=== PATIENT | female | born 1955 | race Caucasian/White ===

== ENCOUNTER 2017-10-28 11:08 | Emergency (ER) | payer BC ==
[2017-10-28 15:10] VITALS: BP 139/84
--- NOTE | 2017-10-28 15:13 | UC ---
FLU HPI - HPI Summary HPI Summary: 62 y/o female presents to the urgent care c/o sore throat, productive cough, body aches, fever, HARRIS, sinus pressure and nasal congestion with yellowish nasal discharge for the past 5 days. Pt didn't take the flu vaccines last year. Pt has been taking Mucinex, Naproxen and Benadryl PO to alleviate symptoms w/o any relief. Nasal discharge is green with +PND and HARRIS. HARRIS is 6/10. Pt denies dizziness, SOB, chest pain, abdominal pain, N/V/D - History of Current Complaint Chief Complaint: UCGeneralIllness Stated Complaint: HARRIS/COUGH/SINUS/BODY ACHES Time Seen by Provider: 10/28/17 15:03 Hx Obtained From: Patient Onset/Duration: Gradual Onset, Lasting Days - 5 days, Still Present, Worse Since - yesterday Severity Currently: Moderate Severity Initially: Mild Pain Intensity: 6 Pain Scale Used: 0-10 Numeric Associated Signs & Symptoms: Positive: Fever, Myalgia, Cough, Sore Throat, Nasal Congestion, Headache - Risk Factors Influenza Risk Factors: Negative - Allergy/Home Medications Allergies/Adverse Reactions: Allergies Allergy/AdvReac Type Severity Reaction Status Date / Time MS Codeine [Codeine] Allergy See Comment Verified 10/28/17 15:10 tramadol Allergy See Comment Verified 10/28/17 15:11 PMH/Surg Hx/FS Hx/Imm Hx Previously Healthy: Yes - Pt denies PMHX - Surgical History Surgical History: Yes Surgery Procedure, Year, and Place: Nasal surg - 12/09. right thyroidectomy 2016. FESS 2015 - Family History Known Family History: Positive: Cardiac Disease, Hypertension - Social History Occupation: Employed Full-time Lives: With Family Alcohol Use: Occasionally Substance Use Type: None Smoking Status (MU): Never Smoked Tobacco Review of Systems Constitutional: Negative Skin: Negative Eyes: Negative ENT: Sore Throat, Nasal Discharge, Sinus Congestion, Sinus Pain/Tenderness, Other - +PND Respiratory: Cough Cardiovascular: Negative Gastrointestinal: Negative Genitourinary: Negative Motor: Negative Neurovascular: Negative Musculoskeletal: Negative Neurological: Headache Psychological: Negative Is Patient Immunocompromised?: No All Other Systems Reviewed And Are Negative: Yes Physical Exam Triage Information Reviewed: Yes Vital Signs: Initial Vital Signs Temp 97.8 F 10/28/17 15:03 Pulse 67 10/28/17 15:03 Resp 14 10/28/17 15:03 BP 139/84 10/28/17 15:03 Pulse Ox 100 10/28/17 15:03 - Additional Comments Vitals: reviewed General: Well developed, female well-nourished patient with NAD. Head and face: Normocephalic and atraumatic, Positive tenderness over the frontal and maxillary sinuses.. Eyes: PERRLA, EOMI x 2. Normal conjunctiva. No eye discharge. ENT: Ears and TM with normal limits. Nose: with yellowish discharge and erythematous mucosa. Pharynx with erythema, no exudate. Neck: Supple, no JVD, no carotid bruits and no lymphadenopathy. Lungs: clear, no rales, no rhonchi, no wheezes. CVS: RRR, S1 and S2 present no murmurs or gallops appreciated. Abdomen: soft nontender with positive bowel sounds. Extremities: no edema noted. Neuro: WNL. Skin: warm and dry Flu Course/Dx - Course Course Of Treatment: 62 y/o female presents to the urgent care c/o sore throat, productive cough, body aches, fever, HARRIS, sinus pressure and nasal congestion with yellowish nasal discharge for the past 5 days. Pt didn't take the flu vaccines last year. Pt has been taking Mucinex, Naproxen and Benadryl PO to alleviate symptoms w/o any relief. Nasal discharge is green with +PND and HARRIS. HARRIS is 8/10. Pt denies dizziness, SOB, chest pain, abdominal pain, N/V/D. Hx obtained. Pt with sinusitis on examiantion. Influenza A&B ordered as per PT's request, [facility] she was explained that the Tx was out the range of her symptoms. Influenza A&B: negative. Pt with almost 1 week of symptoms getting worse. Pt Rx Augmentin PO and flonase nasal spray. However advised to start ABX in 2-3 days if worsen symptoms. Discharge instructions explained to Pt. Advised to Return to the clinic or PCP if symptoms do not improve.Pt understood and agreed with plan of care. - Differential Dx/Diagnosis Differential Diagnosis/HQI/PQRI: Bronchitis, Influenza, Pneumonia, Upper Respiratory Infection, Other - pharyngitis, sinusitis Provider Diagnoses: 1- Acute bacterial sinusitis Discharge - Discharge Plan Condition: Stable Disposition: HOME Prescriptions: Amoxicillin/Clavulanate TAB* [Augmentin TAB 875*] 875 mg PO BID #20 tab Fluticasone NASAL SPRAY 50MCG* [Flonase NASAL SPRAY 50MCG*] 2 spray BOTH NARES DAILY #1 btl Patient Education Materials: Sinusitis (ED) Referrals: Dalia Liz DO [Primary Care Provider] - If Needed Additional Instructions: 1- Please increase fluid intake and rest. If symptoms worsen despite symptomatic treatment in 2-3 days start taken take full course of antibiotic to avoid resistance 2-Use Flonase as directed to help drain fluid. Also buy saline drops to clear sinuses 3-Take Sudafed or Claritin PO to alleviates sinus congestion 4-Return to the clinic or PCP if symptoms do not improve for further management and treatment
== END 2017-10-28 16:00 | disposition home or self-care (01) ==
LOC: UCCORT 11:08
DX: J01.90 Acute sinusitis, unspecified (principal); B96.89 Other specified bacterial agents as the cause of diseases classified elsewhere
CPT/HCPCS: 87502; 99212; G0463

== ENCOUNTER 2019-09-05 10:03 | Emergency (ER) | payer MEDICARE ==
[2019-09-05 11:49] VITALS: BP 146/92
--- NOTE | 2019-09-05 11:58 | UC ---
Throat Pain/Nasal Neri HPI - HPI Summary HPI Summary: Patient is a 64yo female presenting with for c/o of sinus pressure/ tenderness, post nasal drip, and sore throat x4 weeks. Patient also notes hoarse voice x1/5 weeks. Patient also notes L ear fullness. Notes cough but thinks it is from PND and trying to clear her throat. Denies SOB and wheezing. Denies n/v. Denies fever and chills. Notes normal appetite and fluid intake. Does note h/o sinus infections and sinus surgery. Nonsmoker. Denies h/o allergies. - History of Current Complaint Stated Complaint: SINUS COMPLAINT,ST,CHEST CONGESTION X 6 WKS Hx Obtained From: Patient Onset/Duration: Gradual Onset, Lasting Weeks Severity: Mild Pain Intensity: 3 - Allergies/Home Medications Allergies/Adverse Reactions: Allergies Allergy/AdvReac Type Severity Reaction Status Date / Time codeine Allergy Unknown dizzy and Verified 09/05/19 11:32 nausea tramadol Allergy See Comment Verified 09/05/19 11:32 Home Medications: Home Medications Adapalene 0.1% CREAM (NF) [Differin 0.1 % CREAM (NF)] 0.1 % EX 09/05/19 [History ] Estradiol [Estrace] 42.5 gm VG 09/05/19 [History] Hydrochlorothiazide TAB* [Hydrodiuril TAB*] 12.5 mg PO DAILY 09/05/19 [History Confirmed 09/05/19] Ibandronate Sodium 150 mg PO 09/05/19 [History] Levothyroxine TAB* [Synthroid TAB*] 50 mcg PO DAILY 09/05/19 [History Confirmed 09/05/19] Mometasone NASAL (NF) [Nasonex (NF)] 50 mcg NA PRN 09/05/19 [History] Mupirocin 2% OINT* [Bactroban 2 % Oint*] 1 applic TOPICAL BID PRN 09/05/19 [ History Confirmed 09/05/19] metroNIDAZOLE [Metronidazole 0.75 % gel] 1 applic TOPICAL BID 09/05/19 [History Confirmed 09/05/19] PMH/Surg Hx/FS Hx/Imm Hx Endocrine History: Thyroid Disease Cardiovascular History: Hypertension - Surgical History Surgical History: Yes Surgery Procedure, Year, and Place: Nasal surg - 12/09. right thyroidectomy 10/ 2017. FESS 2016. dental extractions and bone grafts - Family History Known Family History: Positive: Cardiac Disease, Hypertension - Social History Alcohol Use: Occasionally Substance Use Type: None Smoking Status (MU): Never Smoked Tobacco Review of Systems All Other Systems Reviewed And Are Negative: Yes Constitutional: Positive: Negative. Negative: Fever, Chills, Fatigue Eyes: Positive: Negative ENT: Positive: Sore Throat, Ear Ache - L ear fullness, Nasal Discharge - PND, Sinus Congestion, Sinus Pain/Tenderness Respiratory: Positive: Cough - from PND. Negative: Shortness Of Breath Cardiovascular: Positive: Negative Gastrointestinal: Positive: Negative Neurological: Positive: Negative Physical Exam Triage Information Reviewed: Yes Appearance: Well-Appearing, No Pain Distress, Well-Nourished Vital Signs: Initial Vital Signs Temp 97.9 F 09/05/19 11:42 Pulse 57 09/05/19 11:42 Resp 15 09/05/19 11:42 BP 146/92 09/05/19 11:42 Pulse Ox 99 09/05/19 11:42 Vital Signs Reviewed: Yes Eyes: Positive: Conjunctiva Clear ENT: Positive: Hearing grossly normal, Nasal congestion, Nasal drainage - PND noted, TMs normal, Hoarse voice, Sinus tenderness - maxillary, Uvula midline. Negative: Pharyngeal erythema, Tonsillar swelling, Tonsillar exudate Neck exam: Normal Neck: Positive: Supple, Nontender, No Lymphadenopathy Respiratory Exam: Normal Respiratory: Positive: Lungs clear, Normal breath sounds, No respiratory distress, No accessory muscle use. Negative: Crackles, Rhonchi, Stridor, Wheezing Cardiovascular Exam: Normal Cardiovascular: Positive: RRR Neurological: Positive: Alert Psychological: Positive: Age Appropriate Behavior Skin Exam: Normal - no erythema or eccymosis Throat Pain/Nasal Course/Dx - Course Course Of Treatment: I treated patient with Augmentin for sinusitis. Instructed patient to continue with symptomatic treatment including use of her steroid nasal spray. Instructed to follow up if symptoms do not resolve within 7 days. Patient voiced understanding and agreed with treatment plan. - Differential Dx/Diagnosis Differential Diagnosis/HQI/PQRI: URI Provider Diagnosis: Acute bacterial sinusitis, Pharyngitis, Laryngitis Discharge ED - Sign-Out/Discharge Documenting (check all that apply): Patient Departure All imaging exams completed and their final reports reviewed: No Studies - Discharge Plan Condition: Stable Disposition: HOME Prescriptions: Amoxicillin/Clavulanate TAB* [Augmentin TAB 875*] 875 mg PO BID #14 tab Patient Education Materials: Sinusitis (ED), Postnasal Drip (DC) Referrals: Bj Middleton MD [Medical Doctor] - If Needed Dalia Liz DO [Primary Care Provider] - If Needed Additional Instructions: Take Augmentin for treatment of your sinus infection. You may continue with your nasal spray as directed. Follow up with your PCP or ENT listed below if symptoms do not resolve within 7 days. - Billing Disposition and Condition Condition: STABLE Disposition: Home
[2019-09-05 20:45] LABS: Hepatitis C Antibody Negative (Negative)
== END 2019-09-05 12:07 | disposition home or self-care (01) ==
LOC: UCCORT 10:03
DX: J01.90 Acute sinusitis, unspecified (principal); B96.89 Other specified bacterial agents as the cause of diseases classified elsewhere; J02.9 Acute pharyngitis, unspecified; J04.0 Acute laryngitis; I10 Essential (primary) hypertension; E07.9 Disorder of thyroid, unspecified; Z79.899 Other long term (current) drug therapy; Z88.5 Allergy status to narcotic agent; Z79.890 Hormone replacement therapy
CPT/HCPCS: 36415; 86803; 99212; G0463